=== PATIENT | female | born 1995 | race Hispanic/Latino ===

== ENCOUNTER 2023-08-31 23:52 | Emergency (ER) | payer BC ==
[2023-09-01] MEDS ORDERED: Lidocaine 1% PF 5 ML VIAL ONE (00:26)
[2023-09-01] MEDS ORDERED: Boostrix 0.5 ML (Tdap) VIAL (>/=7 yrs of age) ONE (00:27)
== END 2023-09-01 01:43 | disposition home or self-care (01) ==
LOC: ERS 23:52
DX: S61.022A Laceration with foreign body of left thumb without damage to nail, initial encounter (principal); F17.210 Nicotine dependence, cigarettes, uncomplicated; W26.0XXA Contact with knife, initial encounter
CPT/HCPCS: 12001; 90471; 90715